=== PATIENT | male | born 1955 | race Caucasian/White ===

== ENCOUNTER 2021-07-28 10:59 | Day surgery (SDC) | payer OTHER ==
[~2021-07-28] VITALS: Ht 175.3 cm; Wt 114.4 kg
[2021-07-28 11:21] VITALS: BP 157/83
[2021-07-28] MEDS ORDERED: HYDR-3972 PO (11:35)
[2021-07-28] MEDS ORDERED: ASPI-1265 PO (11:35)
[2021-07-28] MEDS ORDERED: LISI40TA13 PO (11:35)
[2021-07-28] MEDS ORDERED: AMLO10TA13 PO (11:35)
[2021-07-28] MEDS ORDERED: ATOR40TA72 (11:35)
[2021-07-28] MEDS ORDERED: FLUT16SP26 INH (11:35)
[2021-07-28] MEDS ORDERED: NITR0.4T48 (11:35)
[2021-07-28 12:12] VITALS: BP 158/95
[2021-07-28 12:30] VITALS: BP 154/74
[2021-07-28 12:34] VITALS: BP 147/71
== END 2021-07-28 13:15 | disposition home or self-care (01) ==
LOC: SSTAY O 10:59
PROVIDERS: ATTEND Radiology Vascular & Interventional Radiology
DX: R22.1 Localized swelling, mass and lump, neck (principal); Z88.5 Allergy status to narcotic agent; Z79.82 Long term (current) use of aspirin; Z79.899 Other long term (current) drug therapy
CPT/HCPCS: 10005